=== PATIENT | female | born 1985 | race African-American/Black ===

== ENCOUNTER 2019-02-01 19:37 | Emergency (ER) | payer OTHER ==
[~2019-02-01] VITALS: Ht 152.4 cm; Wt 84.4 kg
[~2019-02-01 19:37] MED LIST: ACETAMINOPHEN-1 EAC1 PO; AFRIN15 ML NASAL; AMOXICILLIN500 M1 PO; AUGMENTIN 500-1 EACH PO; AUGMENTIN 875875 MG PO; BENADRYL25 MG PO; CELEXA 20 MG TA20 MG; CELEXA20 MG PO; DIFLUCAN200 MG PO; FLEXERIL; FLONASE 0.05%50 MCG NASAL; HYDROCODONE-AP1 EAC6 PO; LEVAQUIN 500 M500 M2 PO; MEDROL DOSPAK21 TA1 PO; MEDROLDOSEPACK PO; MONTELUKAST SOD10 MG PO; PENICILLIN VK500 MG PO; PREDNISONE 20 M20 M1 PO; PROMETHAZINE-D120 ML PO; PROVENTIL HFA6.7 G1 INH; XANAX 0.5 MG0.5 M1; XANAX 0.5 MG0.5 MG PO; ZOFRAN4 MG PO; ZPAK PO
[2019-02-01] MEDS ORDERED: ATIVAN0.5 MG PO (19:53)
[2019-02-01] MEDS ORDERED: BRINTELLIX5 MG PO (19:54)
[2019-02-01] MEDS ORDERED: IBUPROFEN 800800 MG PO (21:05)
[2019-02-01 21:28] VITALS: BP 165/101
== END 2019-02-01 21:31 | disposition home or self-care (01) ==
LOC: M.ERS 19:37
DX: S60.212A Contusion of left wrist, initial encounter (principal); S80.01XA Contusion of right knee, initial encounter; J45.909 Unspecified asthma, uncomplicated; F41.0 Panic disorder [episodic paroxysmal anxiety]; Z90.49 Acquired absence of other specified parts of digestive tract; W01.198A Fall on same level from slipping, tripping and stumbling with subsequent striking against other object, initial encounter; Y92.89 Other specified places as the place of occurrence of the external cause; Y93.89 Activity, other specified; Y99.8 Other external cause status

== ENCOUNTER 2019-02-06 14:43 | Emergency (ER) | payer OTHER ==
[~2019-02-06] VITALS: Ht 160 cm; Wt 90.7 kg
[~2019-02-06 14:43] MED LIST changes: +ATIVAN0.5 MG PO; +BRINTELLIX5 MG PO; +IBUPROFEN 800800 MG PO
[2019-02-06] MEDS ORDERED: TRAMADOL 50 MG50 MG PO (16:18)
[2019-02-06] MEDS ORDERED: MIRALAX17 GM PO (16:27)
[2019-02-06 16:30] VITALS: BP 143/93
== END 2019-02-06 16:32 | disposition home or self-care (01) ==
LOC: M.ERS 14:43
DX: M25.522 Pain in left elbow (principal); M25.532 Pain in left wrist; J45.909 Unspecified asthma, uncomplicated; F41.0 Panic disorder [episodic paroxysmal anxiety]; Z90.49 Acquired absence of other specified parts of digestive tract

== ENCOUNTER 2019-07-05 18:21 | Emergency (ER) | payer OTHER ==
[~2019-07-05] VITALS: Ht 152.4 cm; Wt 80.3 kg
[~2019-07-05 18:21] MED LIST changes: +MIRALAX17 GM PO; +TRAMADOL 50 MG50 MG PO
[2019-07-05] MEDS ORDERED: FLEXERIL PO (18:31)
[2019-07-05] MEDS ORDERED: DUEXIS 800-26.1 EACH PO (18:31)
[2019-07-05 19:16] LABS: ABSOLUTE EOSINOPHILS 0.1 thou/uL (0.0-0.7); ABSOLUTE LYMPHOCYTES 1.9 thou/uL (0.8-5.3); ABSOLUTE MONOCYTES 0.5 thou/uL (0.0-1.2); ABSOLUTE NEUTROPHILS 6.6 thou/uL (1.6-8.1); BASOPHILS 0.5 %; EOSINOPHILS 1.2 %; HEMATOCRIT 36.8 % (37.0-47.0); HEMOGLOBIN 12.3 gm/dL (12.0-15.0); LYMPHOCYTES 20.8 %; MCH 29.8 pg (26.0-34.0); MCHC 33.5 g/dL (28.0-37.0); MCV 88.9 fL (80.0-100.0); MONOCYTES 5.7 %; MPV 8.3 fl. (7.2-11.1); NUCLEATED RBCS 0 /100WBC; PLATELET COUNT* 282 thou/uL (150-400); POLYS 71.8 %; RBC 4.14 mil/uL (4.20-5.00); WBC 9.1 thou/uL (4.0-11.0)
[2019-07-05 19:24] LABS: URINE BILIRUBIN NEGATIVE (Negative); URINE BLOOD NEGATIVE (Negative); URINE CLARITY CLEAR; URINE COLOR YELLOW; URINE GLUCOSE-RANDOM NEGATIVE (Negative); URINE KETONES NEGATIVE (Negative); URINE LEUKOCYTES-REFLEX NEGATIVE (Negative); URINE NITRITE-REFLEX NEGATIVE (Negative); URINE PROTEIN NEGATIVE (Negative); URINE UROBILINOGEN 0.2 E.U./dl (0.2-1.0)
[2019-07-05 19:24] LABS: CALCIUM 8.8 mg/dL (8.5-10.1); CREATININE 0.8 mg/dL (0.6-1.3); POTASSIUM 4.1 mmol/L (3.5-5.1)
[2019-07-05 19:32] LABS: AMP/METHAMP Negative (Negative); BARBITURATES Negative (Negative); BENZODIAZEPINES Negative (Negative); COCAINE Negative (Negative); METHADONE Negative (Negative); OPIATES Negative (Negative); PCP Negative (Negative); THC Negative (Negative)
[2019-07-05 19:32] LABS: ALBUMIN 3.4 g/dL (3.4-5.0); MAGNESIUM 1.8 mg/dL (1.8-2.4); TOTAL BILIRUBIN 0.4 mg/dL (<0.1-1.0); TOTAL PROTEIN 7.1 g/dL (6.4-8.2)
[2019-07-05] MEDS ORDERED: VISTARIL 25 MG25 M1 PO (20:16)
[2019-07-05 20:35] VITALS: BP 133/92
--- NOTE | 2019-07-06 10:30 | EKG ---
[place] [address] ELECTROCARDIOGRAM REPORT Name: MEME ONEIL [id number] Admission: 07/05/19 Attend Phys: Discharge: 07/05/19 Date of : 81 Report #: [id number] THIS REPORT FOR: //name// [facility] ED Test Date: 2019-07-05 Test Time: 18:27:35 Pat Name: MEME ONEIL Department: Room: Gender: F Surgical Assist: RITA : 1985 Requested By: Noé Guo Order Number: [id number] : Joshua Singh Measurements Intervals [place] Rate: 104 P: 70 ND: 132 QRS: 6 QRSD: 84 T: 20 QT: 326 QTc: 429 Interpretive Statements Sinus tachycardia Compared to ECG 04/12/2013 21:33:16 Sinus rate has increased Electronically Signed On 07-06-2019 10:30:08 EMPLOYMENT SPECIALIST/PROGRAM MANAGER by Joshua Singh [email or web address] <ELECTRONICALLY SIGNED> By: Joshua Singh MD, [facility] 07/06/19 1030 1827 182 Joshua Singh MD, FACC /EPI
== END 2019-07-05 20:36 | disposition home or self-care (01) ==
LOC: M.ERS 18:21
PROVIDERS: Nurse Practitioner Family
DX: R00.2 Palpitations (principal); J45.909 Unspecified asthma, uncomplicated; Z90.89 Acquired absence of other organs; Z91.013 Allergy to seafood

== ENCOUNTER 2020-06-07 22:42 | Emergency (ER) | payer OTHER ==
[~2020-06-07] VITALS: Ht 152.4 cm; Wt 80.3 kg
[~2020-06-07 22:42] MED LIST changes: +DUEXIS 800-26.1 EACH PO; +FLEXERIL PO; +VISTARIL 25 MG25 M1 PO
[2020-06-07] MEDS ORDERED: BUSPAR30 MG PO (22:52)
[2020-06-08] MEDS ORDERED: NORCO 5-325 TA1 EAC2 PO (00:29)
[2020-06-08] MEDS ORDERED: FLEXERIL PO (00:29)
[2020-06-08 01:10] VITALS: BP 135/75
== END 2020-06-08 01:11 | disposition home or self-care (01) ==
LOC: M.ERS 22:42
DX: S16.1XXA Strain of muscle, fascia and tendon at neck level, initial encounter (principal); J45.909 Unspecified asthma, uncomplicated; Z79.899 Other long term (current) drug therapy; Z91.013 Allergy to seafood; V49.49XA Driver injured in collision with other motor vehicles in traffic accident, initial encounter; Y93.89 Activity, other specified; Y92.89 Other specified places as the place of occurrence of the external cause; Y99.8 Other external cause status